=== PATIENT | female | born 2000 | race Caucasian/White ===

== ENCOUNTER 2022-11-09 17:44 | Emergency (ER) | payer SELFPAY ==
[~2022-11-09] VITALS: Ht 162.6 cm; Wt 59.0 kg
[2022-11-09 18:02] VITALS: BP 144/101
[2022-11-09] MEDS ORDERED: VISCOUS LIDOCAINE 2% 15 ML UDC PO STA (20:33)
[2022-11-09] MEDS ORDERED: MAGNESIUM/ALUMINUM HYDROXIDE/SIMETHICONE 30ML UDC PO STA (20:33)
[2022-11-09] MEDS ORDERED: MAG-55 MT (20:35)
== END 2022-11-09 20:56 | disposition home or self-care (01) ==
LOC: ER 17:44
DX: R09.89 Other specified symptoms and signs involving the circulatory and respiratory systems (principal); S27.818A Other injury of esophagus (thoracic part), initial encounter; X58.XXXA Exposure to other specified factors, initial encounter; Y93.89 Activity, other specified; Y92.89 Other specified places as the place of occurrence of the external cause
CPT/HCPCS: 70360; 71045; 99284